=== PATIENT | male | born 2000 ===

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

== ENCOUNTER → 2021-05-31 13:31 | Outpatient (ROUT) | payer OTHER, MEDICAID, SELFPAY ==
[2021-05-31 15:14] LABS: Urine N gonorrhoeae NOT DETECTED
[2021-05-31 15:21] LABS: Urine Chlamydia NOT DETECTED
== END ==
PROVIDERS: PCP Pediatrics; Visit Provider Physician Assistant
DX: Z11.3 Encounter for screening for infections with a predominantly sexual mode of transmission (principal)
CPT/HCPCS: 87491; 87591

== ENCOUNTER 2025-05-03 20:39 | Emergency (ER) | payer SELFPAY ==
[2025-05-03 20:45] VITALS: BP 136/68; PULSE 108; RESP 20; TEMP 37.3; O2SAT 96; BMI 21.9
--- NOTE | 2025-05-03 20:53 | DI.CT.S_ITS ---
PROCEDURE: CT KIDNEY URETER BLADDER (KUB) INDICATIONS: R flank pain TECHNIQUE: CT of the abdomen and pelvis was obtained without intravenous contrast. Coronal and sagittal reformats were performed. For radiation dose reduction, the following was used: automated exposure control, adjustment of mA and/or kV according to patient size. COMPARISON: None. FINDINGS: Image quality: Diagnostic. Lower Chest: No significant findings. ABDOMEN: Liver: No contour-deforming mass. Gallbladder: No radiopaque gallstones or wall thickening. Biliary ducts: No biliary dilation. Pancreas: No ductal dilation. Spleen: Size is within normal limits. Adrenal Glands: No adrenal nodules. Kidneys and Ureters: No nephrolithiasis or evidence of obstructive uropathy. No hydronephrosis. No contour-deforming mass. Stomach and Bowel: Small sliding-type hiatal hernia. Mild segmental cecal and ascending colon wall thickening. Normal air-filled appendix. Peritoneum: No abnormal intraperitoneal fluid. No free air. Ventral Wall: No significant hernia. Abdominal Nodes: No retroperitoneal or mesenteric adenopathy by size criteria. Vessels: Aorta and inferior vena cava are normal in size. PELVIS: Pelvic Organs: Unremarkable. Bladder: Unremarkable. Pelvic Nodes: No enlarged lymph nodes. Miscellaneous: No inguinal hernias are seen. Bones: No aggressive osseous abnormality. IMPRESSION: 1. No evidence of urinary tract stone or obstructive uropathy. 2. Mild cecal and ascending colon bowel wall thickening, which can be seen in the clinical setting of mild infectious or inflammatory colitis. Normal appearing appendix. Dictated by: Matt Parish M.D. on 05/03/2025 at 21:27 Approved by: Matt Parish M.D. on 05/03/2025 at 21:31
--- NOTE | 2025-05-03 20:58 | ED.MALEGU ---
HPI - Male Genitourinary <Sherri Storm DO - Last Filed: 05/04/25 16:02> General Chief complaint: Urogenital-Male Stated complaint: urogenital male x pain/blood/nausea Time Seen by Provider: 05/03/25 20:52 Source: patient, RN notes reviewed and old records reviewed Mode of arrival: Ambulatory Limitations: no limitations History of Present Illness HPI Narrative: 25-year-old male history of chronic alcohol use presents with complaint of right flank pain radiating down to the testicular area. Patient states it started suddenly this afternoon. He did not have any pain prior to this. He denies fevers. He had has had some nausea or vomiting. He notes some increased pain when he urinates. He has not had any urgency or frequency. Notes his urine has been bloody. He has not appreciated any new penile discharge. Patient states no changes to bowel movements. He has not had similar symptoms in the past. He states no daily medications. He does drink a bottle +of wine daily. Denies any tobacco. Denies recreational drugs. Related Data Previous Rx's ?Medication ?Instructions ?Recorded azithromycin 500 mg tablet 1,000 mg (2 x 500 mg) PO ONCE #2 05/31/21 tabs sulfamethoxazole 800 1 tab PO BID 9 days #18 tabs 05/04/25 mg-trimethoprim 160 mg tablet (Bactrim DS) Allergies Allergy/AdvReac Type Severity Reaction Status Date / Time No Known Allergies Allergy Uncoded 05/03/25 20:45 Review of Systems <Sherri Storm DO - Last Filed: 05/04/25 16:02> Review of Systems ROS Unobtainable: All systems reviewed & are unremarkable except as noted in HPI and below Patient History <Sherri Storm DO - Last Filed: 05/04/25 16:02> Medical History Exposure to STD No significant medical problems Social History Smoking Status: Never smoker Smoking Status: Never smoker Exam <Sherri Storm DO - Last Filed: 05/04/25 16:02> Narrative Exam Narrative: GENERAL: Alert and oriented x three, male in moderate distress HEENT: Head normocephalic, atraumatic, EOMI, pupils reactive, face symmetric, moist mucous membranes NECK: Supple, full range of motion CARDIOVASCULAR: Regular rate and rhythm without murmurs, rubs or gallops. RESPIRATORY: Breath sounds equal bilaterally, no wheezes rales or rhonchi. ABDOMEN: Soft, nontender. Normoactive bowel sounds all 4 quadrants. No guarding or rebound, rigidity, no mass : No CVA tenderness bilaterally EXTREMITIES: Normal range of motion, no clubbing or edema. Neurovascularly intact NEUROLOGICAL: Cranial nerves II through XII grossly intact. Moving all extremities SKIN: Warm, dry, no petechiae, no rashes or lesions. Initial Vital Signs Initial Vital Signs: Vital Signs Temperature 99.1 F 05/03/25 20:45 Pulse Rate 108 H 05/03/25 20:45 Respiratory Rate 20 05/03/25 20:45 Blood Pressure 136/68 05/03/25 20:45 Pulse Oximetry 96 05/03/25 20:45 Oxygen Delivery Method Room Air 05/03/25 20:45 <Marques Crandall MD - Last Filed: 05/04/25 02:25> Initial Vital Signs Initial Vital Signs: Vital Signs Temperature 99.1 F 05/03/25 20:45 Pulse Rate 108 H 05/03/25 20:45 Respiratory Rate 20 05/03/25 20:45 Blood Pressure 136/68 05/03/25 20:45 Pulse Oximetry 96 05/03/25 20:45 Oxygen Delivery Method Room Air 05/03/25 20:45 Course <Sherri Storm DO - Last Filed: 05/04/25 16:02> Orders Ordered: Discontinued Medications Sodium Chloride (Normal Saline 0.9%) 1,000 mls @ 1,000 mls/hr IV BOLUS ONE Stop: 05/03/25 21:57 Last Infusion: 05/03/25 23:00 Dose: Infused Documented By: Admin: 05/03/25 21:25 Dose: 1,000 mls/hr Documented By: CELSA Levofloxacin (Levaquin) 750 mg in 150 mls @ 100 mls/hr IV NOW ONE Stop: 05/03/25 22:57 Last Infusion: 05/03/25 23:52 Dose: Infused Documented By: Admin: 05/03/25 22:11 Dose: 100 mls/hr Documented By: JASON Sodium Chloride (Normal Saline 0.9%) 1,983 mls @ 1,322 mls/hr 30 ml/kg infuse over 90 min (1983 ml) IV NOW ONE Stop: 05/03/25 23:26 Last Infusion: 05/03/25 23:53 Dose: Infused Documented By: Admin: 05/03/25 22:59 Dose: 1,322 mls/hr Documented By: PIEDAD Ketorolac Tromethamine (Ketorolac 30 Mg/Ml Vial) 15 mg IV NOW ONE Stop: 05/03/25 20:53 Last Admin: 05/03/25 21:24 Dose: 15 mg Documented By: CELSA Ondansetron HCl (Ondansetron 4 Mg/2 Ml Inj) 4 mg IV NOW PRN PRN Reason: Nausea And Vomiting Ondansetron HCl (Ondansetron 4 Mg Odt) 4 mg PO NOW PRN PRN Reason: Nausea And Vomiting Ondansetron HCl (Ondansetron 4 Mg/2 Ml Inj) 4 mg IV NOW ONE Stop: 05/03/25 20:53 Last Admin: 05/03/25 21:24 Dose: 4 mg Documented By: CELSA Vital Signs Vital signs: Vital Signs - 8 hr 05/03/25 20:45 05/03/25 22:56 05/03/25 22:57 Temperature 99.1 F Pulse Rate 108 H 102 H Respiratory Rate 20 Blood Pressure 136/68 123/75 Pulse Oximetry 96 99 Oxygen Delivery Method Room Air 05/03/25 22:57 05/04/25 00:32 Temperature 99.4 F Pulse Rate 97 H 100 H Respiratory Rate 20 Blood Pressure 121/59 L Pulse Oximetry 100 100 Oxygen Delivery Method Room Air <Marques Crandall MD - Last Filed: 05/04/25 02:25> Orders Ordered: Discontinued Medications Sodium Chloride (Normal Saline 0.9%) 1,000 mls @ 1,000 mls/hr IV BOLUS ONE Stop: 05/03/25 21:57 Last Infusion: 05/03/25 23:00 Dose: Infused Documented By: Admin: 05/03/25 21:25 Dose: 1,000 mls/hr Documented By: CELSA Levofloxacin (Levaquin) 750 mg in 150 mls @ 100 mls/hr IV NOW ONE Stop: 05/03/25 22:57 Last Infusion: 05/03/25 23:52 Dose: Infused Documented By: Admin: 05/03/25 22:11 Dose: 100 mls/hr Documented By: JASON Sodium Chloride (Normal Saline 0.9%) 1,983 mls @ 1,322 mls/hr 30 ml/kg infuse over 90 min (1983 ml) IV NOW ONE Stop: 05/03/25 23:26 Last Infusion: 05/03/25 23:53 Dose: Infused Documented By: Admin: 05/03/25 22:59 Dose: 1,322 mls/hr Documented By: PIEDAD Ketorolac Tromethamine (Ketorolac 30 Mg/Ml Vial) 15 mg IV NOW ONE Stop: 05/03/25 20:53 Last Admin: 05/03/25 21:24 Dose: 15 mg Documented By: CELSA Ondansetron HCl (Ondansetron 4 Mg/2 Ml Inj) 4 mg IV NOW PRN PRN Reason: Nausea And Vomiting Ondansetron HCl (Ondansetron 4 Mg Odt) 4 mg PO NOW PRN PRN Reason: Nausea And Vomiting Ondansetron HCl (Ondansetron 4 Mg/2 Ml Inj) 4 mg IV NOW ONE Stop: 05/03/25 20:53 Last Admin: 05/03/25 21:24 Dose: 4 mg Documented By: CELSA Vital Signs Vital signs: Vital Signs - 8 hr 05/03/25 20:45 05/03/25 22:56 05/03/25 22:57 Temperature 99.1 F Pulse Rate 108 H 102 H Respiratory Rate 20 Blood Pressure 136/68 123/75 Pulse Oximetry 96 99 Oxygen Delivery Method Room Air 05/03/25 22:57 05/04/25 00:32 Temperature 99.4 F Pulse Rate 97 H 100 H Respiratory Rate 20 Blood Pressure 121/59 L Pulse Oximetry 100 100 Oxygen Delivery Method Room Air MDM - Male Genitourinary <Sherri Storm DO - Last Filed: 05/04/25 16:02> Lab Data 05/03/25 21:19 05/03/25 21:19 Labs: Lab Results 05/03/25 05/03/25 05/03/25 Range/Units 20:50 21:19 23:16 WBC 14.5 H (4.5-11.0) X10^3/uL RBC 4.99 (4.5-5.9) X10^6/uL Hgb 16.2 (13.5-17.5) g/dL Hct 47.7 (41-53) % MCV 95.7 (80-100) fL MCH 32.5 (26-34) PG MCHC 34.0 (30-36) % RDW 13.4 (11.6-14.8) % Plt Count 290 (150-400) X10^3/uL Neut % (Auto) 80.9 H (50-75) % Lymph % (Auto) 10.1 L (25-40) % [place] % (Auto) 8.0 (3-14) % Eos % (Auto) 0.5 L (2-4) % Baso % (Auto) 0.5 (0-2) % Neut # (Auto) 63084 H (3334-1464) /uL Lymph # (Auto) 1500 (8500-3827) /uL [place] # (Auto) 1200 H (0-900) /uL Eos # (Auto) 100 (0-450) /uL Baso # (Auto) 100 (0-100) /uL Sodium 140 (137-145) mmol/L Potassium 3.8 (3.4-5.1) mmol/L Chloride 102 (98-107) mmol/L Carbon Dioxide 26 (22-32) mmol/L BUN 14 (9-20) mg/dL Creatinine 0.96 (0.66-1.25) mg/dL Estimated GFR > 60 (>60) mL/min BUN/Creatinine Ratio 14.6 (6-22) Glucose 80 (70-99) mg/dL Lactate 3.1 H 2.0 (0.7-2.1) mmol/L Calcium 9.3 (8.4-10.2) mg/dL Total Bilirubin 0.7 (0.2-1.3) mg/dL AST 58 (17-59) IU/L ALT 59 H (<50) IU/L Alkaline Phosphatase 69 (38-126) U/L Total Protein 8.3 H (6.3-8.2) g/dL Albumin 5.0 (3.5-5.0) g/dL Globulin 3.3 (1.7-4.1) g/dL Albumin/Globulin Ratio 1.5 (1.0-2.8) Lipase 61 (23-300) U/L Procalcitonin 0.048 (<0.5) ng/mL Urine Color Red Urine Appearance Cloudy Urine pH 8.5 H (4.5-8.0) Ur Specific [place] 1.020 (1.000-1.035) Urine Protein 3+ H (Negative) Urine Glucose (UA) Negative (Negative) g/dL Urine Ketones Negative (NEGATIVE) Urine Occult Blood 3+ H (Negative) Urine Nitrate Positive H (Negative) Urine Bilirubin Negative (NEGATIVE) Urine Urobilinogen 1.0 (0.2) E.U./dL Ur Leukocyte Esterase 1+ H (NEGATIVE) Urine RBC >100/hpf H (0-5/HPF) Urine WBC >100/hpf H (0-5/HPF) Ur Squamous Epith Cells None seen (0-5/HPF) Urine Bacteria Few (2-10) H (None) Ur Culture Indicated? Specimen cultured Vol Urine Centrifuged 10ml (spun) Ur Chlamydia DNA (PCR) Not detected N gonorrhoeae DNA (PCR) Not detected MDM Narrative Medical decision making narrative: Labs show white count of 14.5 hemoglobin is 16 platelets of 290, chemistries are appropriate BUN and creatinine are normal lactate 3.1 ALT is 59 bilirubin is 0.7 with an AST of 58 alk-phos is 69 lipase is 61 procalcitonin Urine shows a pH 8.5 protein of 3+ 3+ blood positive nitrates positive for leukocyte esterase greater than 100 RBCs greater than 100 WBCs few bacteria was sent for culture. CT KUB, no evidence of UTI stone or obstructive uropathy mild cecal and ascending colon bowel wall thickening can be seen in clinical setting of mild infectious or inflammatory colitis, normal-appearing appendix. Patient received fluids Toradol and Zofran. Patient's and family at bedside note that he does pass out with blood draws. Patient received 30 cc/kilos fluid bolus, IV antibiotics, Zofran and Toradol. On rechecked patient is feeling much more comfortable. Patient had oral challenge in the department. Patient signed out to Dr. Busby while awaiting repeat lactate and Urine GC. Patient is positive for UTI/pyelonephritis with findings of colitis on CT imaging he does meet septic criteria with a white count of 14.5 and a pulse of 108. <Marques Crandall MD - Last Filed: 05/04/25 02:25> Medical Records Medical records narrative: 23:00 Patient care transferred to mo at the change of shift by Dr. Martinez with 2nd lactate and urine GC chlamydia pending. This is a 25-year-old male patient with a history of alcohol use disorder who presents with right flank pain radiating to the testicle with visible hematuria which started this afternoon. No fever or chills. To this point his workup includes a urine consistent with UTI and hematuria. CBC reveals WBCs 14.5. Chemistry panel unremarkable. CT KUB reveals no evidence of hydronephrosis or kidney stone/ureteral stone. Patient has a lactate and GC chlamydia of the urine pending. First lactate was 3.1. 00:20 The patient's 2nd lactate has improved and normalized to 2.0. Urine GC chlamydia is negative. He is feeling better overall. Patient appears to have right-sided pyelonephritis and has received ceftriaxone. We will prescribe Bactrim DS for a 10 day course. Follow up with primary care for recheck in 2-3 days. Lab Data Labs: Lab Results 05/03/25 05/03/25 05/03/25 Range/Units 20:50 21:19 23:16 WBC 14.5 H (4.5-11.0) X10^3/uL RBC 4.99 (4.5-5.9) X10^6/uL Hgb 16.2 (13.5-17.5) g/dL Hct 47.7 (41-53) % MCV 95.7 (80-100) fL MCH 32.5 (26-34) PG MCHC 34.0 (30-36) % RDW 13.4 (11.6-14.8) % Plt Count 290 (150-400) X10^3/uL Neut % (Auto) 80.9 H (50-75) % Lymph % (Auto) 10.1 L (25-40) % [place] % (Auto) 8.0 (3-14) % Eos % (Auto) 0.5 L (2-4) % Baso % (Auto) 0.5 (0-2) % Neut # (Auto) 01820 H (2028-4085) /uL Lymph # (Auto) 1500 (4042-6051) /uL [place] # (Auto) 1200 H (0-900) /uL Eos # (Auto) 100 (0-450) /uL Baso # (Auto) 100 (0-100) /uL Sodium 140 (137-145) mmol/L Potassium 3.8 (3.4-5.1) mmol/L Chloride 102 (98-107) mmol/L Carbon Dioxide 26 (22-32) mmol/L BUN 14 (9-20) mg/dL Creatinine 0.96 (0.66-1.25) mg/dL Estimated GFR > 60 (>60) mL/min BUN/Creatinine Ratio 14.6 (6-22) Glucose 80 (70-99) mg/dL Lactate 3.1 H 2.0 (0.7-2.1) mmol/L Calcium 9.3 (8.4-10.2) mg/dL Total Bilirubin 0.7 (0.2-1.3) mg/dL AST 58 (17-59) IU/L ALT 59 H (<50) IU/L Alkaline Phosphatase 69 (38-126) U/L Total Protein 8.3 H (6.3-8.2) g/dL Albumin 5.0 (3.5-5.0) g/dL Globulin 3.3 (1.7-4.1) g/dL Albumin/Globulin Ratio 1.5 (1.0-2.8) Lipase 61 (23-300) U/L Procalcitonin 0.048 (<0.5) ng/mL Urine Color Red Urine Appearance Cloudy Urine pH 8.5 H (4.5-8.0) Ur Specific [place] 1.020 (1.000-1.035) Urine Protein 3+ H (Negative) Urine Glucose (UA) Negative (Negative) g/dL Urine Ketones Negative (NEGATIVE) Urine Occult Blood 3+ H (Negative) Urine Nitrate Positive H (Negative) Urine Bilirubin Negative (NEGATIVE) Urine Urobilinogen 1.0 (0.2) E.U./dL Ur Leukocyte Esterase 1+ H (NEGATIVE) Urine RBC >100/hpf H (0-5/HPF) Urine WBC >100/hpf H (0-5/HPF) Ur Squamous Epith Cells None seen (0-5/HPF) Urine Bacteria Few (2-10) H (None) Ur Culture Indicated? Specimen cultured Vol Urine Centrifuged 10ml (spun) Ur Chlamydia DNA (PCR) Not detected N gonorrhoeae DNA (PCR) Not detected Discharge Plan Departure Patient Disposition: Home Clinical Impression: Pyelonephritis Instructions: Kidney Infection Activity Restrictions/Additional Instructions: Plan: Hydration, rest and supportive care. Bactrim ds for 9 more days for kidney infection. Follow up with your doctor in 2 or 3 days for recheck and to follow up on the urine culture. Return to the ER if worse. Prescriptions: New sulfamethoxazole-trimethoprim [Bactrim DS] 800-160 mg tablet 1 tab PO BID 9 Days Qty: 18 0RF No Action azithromycin 500 mg tablet 1,000 mg PO ONCE Qty: 2 0RF Rx Instructions: Take pills together with food. Stand Alone Forms: Patient Portal/API
[2025-05-03 21:04] LABS: Appearance Urine UA CLOUDY; Bilirubin Urine UA NEGATIVE (NEGATIVE); Color Urine UA RED; Glucose Urine UA NEGATIVE (Negative); Ketones Urine UA NEGATIVE (NEGATIVE); Leukocyte Esterase Urine UA 1+ (NEGATIVE); Nitrite Urine UA POSITIVE (Negative); Occult Blood Urine UA 3+ (Negative); Protein Urine UA 3+ (Negative); Specific Gravity Urine UA 1.020 (1.000-1.035); Urobilinogen Urine UA 1.0 E.U./dL (0.2); pH Urine UA 8.5 (4.5-8.0)
[2025-05-03 21:13] LABS: Culture Indicated Urine Specimen Cultured
[2025-05-03 21:24] LABS: Add Manual Diff / Slide Review NO; Hematocrit 47.7 % (41-53); Hemoglobin 16.2 g/dL (13.5-17.5); Lymphocytes Absolute Auto 1500 /uL (1100-4500); Mean Corpuscular HGB Conc 34.0 % (30-36); Mean Corpuscular Hemoglobin 32.5 PG (26-34); Mean Corpuscular Volume 95.7 fL (80-100); Platelet Count 290 X10^3/uL (150-400)
[2025-05-03] MEDS: KETOROLAC 30 MG/ML VIAL 15 MG IV (21:24)
[2025-05-03] MEDS: ONDANSETRON 4 MG/2 ML INJ IV (21:24)
[2025-05-03] MEDS: SODIUM CHLORIDE 0.9% 1,000 ML 1000 ML IV (21:25)
[2025-05-03 21:35] LABS: Alanine Aminotransferase 59 IU/L (<50); Albumin 5.0 g/dL (3.5-5.0); Albumin Globulin Ratio 1.5 (1.0-2.8); Alkaline Phosphatase 69 U/L (38-126); Blood Urea Nitrogen 14 mg/dL (9-20); Calcium 9.3 mg/dL (8.4-10.2); Carbon Dioxide 26 mmol/L (22-32); Chloride 102 mmol/L (98-107); Estimated Glomerular Filt Rate > 60 mL/min (>60); Globulin 3.3 g/dL (1.7-4.1); Glucose 80 mg/dL (70-99); HEMOLYSIS < 15 (0-50); Lipase 61 U/L (23-300); Potassium 3.8 mmol/L (3.4-5.1); Sodium 140 mmol/L (137-145); Total Protein 8.3 g/dL (6.3-8.2)
[2025-05-03 21:45] LABS: Lactate (Lactic Acid) 3.1 mmol/L (0.7-2.1)
[2025-05-03 22:03] LABS: Procalcitonin 0.048 ng/mL (<0.5)
[2025-05-03 22:56] VITALS: PULSE 102; O2SAT 99
[2025-05-03 22:57] VITALS: BP 123/75; PULSE 97; O2SAT 100
[2025-05-03] MEDS: SODIUM CHLORIDE 0.9% 1,983 ML 1322 ML IV (22:59)
[2025-05-03 23:06] LABS: Reflexed Lactate in 2 Hours Y
[2025-05-03 23:36] LABS: Lactate 2HR (Lactic Acid Rflx) 2.0 mmol/L (0.7-2.1)
[2025-05-03 23:53] LABS: Urine N gonorrhoeae NOT DETECTED
[2025-05-03 23:56] LABS: Urine Chlamydia NOT DETECTED
[2025-05-04 00:32] VITALS: BP 121/59; PULSE 100; RESP 20; TEMP 37.4; O2SAT 100
== END 2025-05-04 00:35 | disposition home or self-care (01) ==
PROVIDERS: Emergency Medicine; Emergency Provider Emergency Medicine
DX: N12 Tubulo-interstitial nephritis, not specified as acute or chronic (principal); R30.0 Dysuria
CPT/HCPCS: 36415; 74176; 80053; 81001; 83605; 83690; 84145; 85025; 87077; 87086; 87186; 87491; 87591; 96365; 96366; 96375; 99284; J1885; J1956; J2405; J7030